=== PATIENT | male | born 1990 | race Hispanic/Latino ===

== ENCOUNTER 2023-11-21 12:07 | Emergency (ER) | payer OTHER ==
[~2023-11-21] VITALS: Ht 177.8 cm; Wt 90.7 kg
[2023-11-21 12:22] VITALS: BP 136/78; PULSE 97; RESP 18
[2023-11-21] MEDS ORDERED: IBUP-2077 PO (12:31)
[2023-11-21] MEDS ORDERED: CLIN-141 PO (12:31)
[2023-11-21] MEDS: IBUPROFEN 800 MG TAB PO ONE (12:47)
== END 2023-11-21 12:51 | disposition home or self-care (01) ==
LOC: EDH 12:07
DX: S02.5XXA Fracture of tooth (traumatic), initial encounter for closed fracture (principal); K02.9 Dental caries, unspecified; Z98.890 Other specified postprocedural states; X58.XXXA Exposure to other specified factors, initial encounter; Y93.89 Activity, other specified; Y92.89 Other specified places as the place of occurrence of the external cause; Y99.8 Other external cause status